=== PATIENT | male | born 2000 ===

== ENCOUNTER 2021-05-23 07:54 | Outpatient (REF) | payer SELFPAY ==
[2021-05-23 19:08] LABS: Hemoglobin A1C 5.4 % (<5.7)
[2021-05-23 19:12] LABS: ALT 45 U/L (16-63); AST 15 U/L (15-37); Albumin 4.1 g/dL (3.4-5.0); Alkaline Phosphatase 92 U/L (46-116); Anion Gap 4.3 mmol/L (3-11); BUN 13 mg/dL (7-18); Bilirubin, Total 0.4 mg/dL (0.2-1.0); CO2 27.7 mmol/L (21.0-32.0); Calcium 9.2 mg/dL (8.5-10.1); Calculated LDL 154 mg/dL (<100); Chloride 108 mmol/L (98-107); Cholesterol 203 mg/dL (<200); Glucose 99 mg/dL (74-106); HDL Cholesterol 37 mg/dL (40-60); Potassium 4.1 mmol/L (3.5-5.1); Sodium 140 mmol/L (136-145); Total Protein 6.9 g/dL (6.4-8.2); Triglyceride 61 mg/dL (<150)
== END 2021-05-23 07:55 | disposition home or self-care (01) ==
LOC: NCHCN 07:54
PROVIDERS: PCP Pediatrics; Visit Provider Nurse Practitioner Family
DX: Z68.30 Body mass index [BMI] 30.0-30.9, adult (principal)
CPT/HCPCS: 80053; 80061; 83036